=== PATIENT | female | born 1975 ===

== ENCOUNTER 2017-11-16 06:40 | Emergency (ER) | payer OTHER ==
[2017-11-16 07:32] LABS: HCG,QUALITATIVE URINE NEGATIVE (NEGATIVE)
[2017-11-16 07:35] LABS: SQUAMOUS EPITHIAL 19 /hpf (0-5); URINE BACTERIA OCC (<OCC); URINE BILIRUBIN NEGATIVE (NEGATIVE); URINE BLOOD NEGATIVE (NEGATIVE); URINE CLARITY Hazy (Clear); URINE COLOR Yellow (YELLOW); URINE GLUCOSE (UA) NORMAL (Normal); URINE LEUKOCYTE ESTERASE 3+ Leu/uL (Negative); URINE PROTEIN NEGATIVE (NEGATIVE); URINE UROBILINOGEN NORMAL mg/dL (0.2-1.0)
--- NOTE | 2017-11-16 07:44 | C.PDOC ---
History Of Present Illness 42-YEAR-OLD FEMALE, PRESENTS TO THE EMERGENCY DEPARTMENT WITH COMPLAINTS OF LLQ ABDOMINAL PAIN ONGOING X 1 MO. LOCALIZED INTERMIT, PERSIST. NO FEVER NVD, BRBPR. PSH NEG. NO UTI SX EXAM NAD NONTOXIC ABD +LLQ TEND MILD SOFT NO R/G REMAINDER NEG Time Seen by Provider: 11/16/17 07:31 Chief Complaint (Nursing): Abdominal Pain History Per: Patient History/Exam Limitations: no limitations Onset/Duration Of Symptoms: Days Severity: Moderate Location Of Pain/Discomfort: LLQ Past Medical History Reviewed: Historical Data, Nursing Documentation, Vital Signs Vital Signs: Last Vital Signs Temp 98.6 F 11/16/17 06:46 Pulse 71 11/16/17 06:46 Resp 14 11/16/17 06:46 BP 108/73 11/16/17 06:46 Pulse Ox 98 11/16/17 09:05 Family History: States: No Known Family Hx - Social History Hx Alcohol Use: No Hx Substance Use: No - Immunization History Hx Tetanus Toxoid Vaccination: No Hx Influenza Vaccination: No Hx Pneumococcal Vaccination: No Review Of Systems Constitutional: Negative for: Fever, Chills Cardiovascular: Negative for: Chest Pain, Palpitations Respiratory: Negative for: Shortness of Breath Gastrointestinal: Positive for: Abdominal Pain. Negative for: Nausea, Vomiting , Diarrhea, Constipation Skin: Negative for: Rash Neurological: Negative for: Weakness, Numbness, Headache, Dizziness Physical Exam - Physical Exam Appears: Non-toxic, No Acute Distress Skin: Normal Color, Warm, Dry, No Rash Head: Atraumatic, Normacephalic Eye(s): bilateral: Normal Inspection Nose: Normal Oral Mucosa: Moist Lips: Normal Appearing Neck: Normal ROM Chest: Symmetrical Cardiovascular: Rhythm Regular, No Murmur Respiratory: Normal Breath Sounds, No Accessory Muscle Use Gastrointestinal/Abdominal: Soft, Tenderness (LLQ), No Guarding, No Rebound Extremity: Normal ROM, No Deformity, No Swelling Neurological/Psych: Oriented x3, Normal Speech ED Course And Treatment - Laboratory Results Result Diagrams: 11/16/17 07:57 11/16/17 07:57 O2 Sat by Pulse Oximetry: 98 (RA) Pulse Ox Interpretation: Normal Progress - Re-Evaluation Re-evaluation Note: 11/16/17 10:[address] REPORT REVIEWED. LAKEISHA PORRAS PMD/CLINIC - Data Reviewed Data Reviewed: Lab, Diagnostic imaging, Old records Disposition Counseled Patient/Family Regarding: Studies Performed, Diagnosis, Need For Followup - Disposition Referrals: [facility] [Outside] [facility] [Outside] Disposition: HOME/ ROUTINE Disposition Time: 10:34 Condition: GOOD Instructions: Diverticulosis (DC) Forms: The Smart[employer] Physical (Venezuelan) Print Language: MACEDONIAN - Clinical Impression Clinical Impression: Abdominal pain - Scribe Statement The provider has reviewed the documentation as recorded by the Scribe (Minerva Bolaños) All medical record entries made by the Scribe were at my direction and personally dictated by me. I have reviewed the chart and agree that the record accurately reflects my personal performance of the history, physical exam, medical decision making, and the department course for this patient. I have also personally directed, reviewed, and agree with the discharge instructions and disposition.
[2017-11-16 08:05] LABS: BASO % 0.7 % (0.0-2.0); EOS % 0.7 % (0.0-4.0); HEMOGLOBIN 11.3 g/dL (11.0-16.0); LYMPH # 1.2 K/uL (1.0-4.3); MEAN CELL VOLUME 81.4 fL (81.0-99.0); MEAN CORPUSCULAR HEMOGLOBIN 27.4 pg (27.0-31.0); MEAN CORPUSCULAR HGB CONC 33.7 g/dL (33.0-37.0); MEAN PLATELET VOLUME 9.5 fL (7.2-11.7); MONO # 0.4 K/uL (0.0-0.8); MONO % 6.6 % (0.0-10.0); NEUT # 4.2 K/uL (1.8-7.0); NRBC % 0.2 % (0.0-2.0); RBC 4.14 Mil/uL (3.80-5.20); RED CELL DISTRIBUTION WIDTH 15.6 % (11.5-14.5); WHITE BLOOD COUNT 5.8 K/uL (4.8-10.8)
[2017-11-16 08:15] LABS: ALB/GLOB RATIO 1.2 (1.0-2.1); ALBUMIN 4.1 g/dL (3.5-5.0); ALT/SGPT 26 U/L (9-52); AST/SGOT 18 U/L (14-36); BLOOD UREA NITROGEN 8 mg/dL (7-17); CALCIUM 8.2 mg/dl (8.6-10.4); GFR AFRICAN-AMERICAN > 60; GFR NON-AFRICAN AMERICAN > 60; LIPASE 57 U/L (23-300)
[2017-11-16] MEDS ORDERED: Iodixanol 320 MG/ML 100 ML BOTTLE IV ONE (08:22)
--- NOTE | 2017-11-16 10:00 | CT ---
PROCEDURE: CT abdomen and pelvis dated 11/16/2017. HISTORY: Abdominal pain ; LLQ COMPARISON: No prior TECHNIQUE: Contiguous axial images of the abdomen and pelvis performed following intravenous injection of 100 cc Visipaque 320 contrast material. Additional 2 dimensional sagittal and coronal reformats generated. This CT exam was performed using one or more of the following dose reduction techniques: Automated exposure control, adjustment of the mA and/or kV according to patient size, and/or use of iterative reconstruction technique. Contrast dose: 100 cc Visipaque 320 Radiation dose: Total exam DLP = 789.7 mGy-cm. FINDINGS: LOWER THORAX: Minimal bibasilar atelectasis left greater than right Lung bases are otherwise clear. No infiltrate effusion or basilar pneumothorax Heart size within range of normal. No significant pericardial effusion. There is a small hiatal hernia. LIVER: The liver is enlarged measuring over 21 cm in CC dimension. Mild to moderate diffuse fatty hepatic infiltration. No obvious hepatic mass collection or calcification. Oral and splenic veins are opacified. GALLBLADDER AND BILE DUCTS: No evidence of intraluminal gallbladder calculi. PANCREAS: Unremarkable. No mass. No ductal dilatation. SPLEEN: Unremarkable. No splenomegaly. ADRENALS: No adrenal lesions. KIDNEYS AND URETERS: Kidneys demonstrate symmetric nephrograms. No evidence of nephrolithiasis or hydronephrosis the small approximate 9.8 mm rounded low-attenuation focus anterolateral cortex lower pole left kidney probably represent cysts. BLADDER: Urinary bladder is incompletely distended which may in part account for thick-walled appearance. Correlation with urinalysis recommended to exclude cystitis. REPRODUCTIVE: There is a somewhat elliptical shaped though somewhat irregular peripherally enhancing mass within the uterine fundus that measures approximately 4.3cm cc x 3.6cm AP x 3.0cm trans. This lesion probably represents degenerating uterine fibroid . In situ Copper-T IUD. .In addition, there is a small approximately 2.6 x 1.7 cm elliptical shaped involuting left adnexal cyst. . Slight increased vascularity about the uterus; rule out pelvic congestion syndrome. . Questionable trace fluid within the cul de sac. Recommend follow-up pelvic ultrasound recommended to confirm all the above-mentioned findings. APPENDIX: Appendix is unremarkable. BOWEL: Evaluation of the bowel is limited due to the lack of oral contrast material. Stomach is incompletely distended which in part accounts for thick-walled appearance. Possibility of gastritis or other intrinsic wall lesion not excluded. Visualized small bowel exhibit normal contour and caliber. No evidence acute mechanical small bowel obstruction. Stool and air seen throughout the large bowel. There are small colonic diverticula seen along the descending as well as sigmoid colon. No radiographic evidence of acute diverticulitis. Peritoneum Unremarkable. No fluid collection. No free air. Small fat containing umbilical hernia. LYMPH NODES: Unremarkable. No enlarged lymph nodes. VASCULATURE: Unremarkable. No aortic aneurysm. BONES: No fracture or destructive lesion. Minor degenerative spondylosis of the lower thoracic and to a lesser degree lumbar spine OTHER FINDINGS: None. IMPRESSION: Probable degenerating the fundal fibroid. Involuting and or hemorrhagic left adnexal cyst. Questionable trace fluid within the cul de sac. In situ IUD Recommend followup pelvic ultrasound. . Small left renal cyst. Hepatomegaly with moderate fatty hepatic infiltration. Diverticulosis without radiographic evidence acute diverticulitis.
[2017-11-16 10:51] VITALS: BP 116/81; PULSE 65; RESP 18; TEMP 98.3; O2SAT 100
== END 2017-11-16 10:49 | disposition home or self-care (01) ==
LOC: C.ER 06:40
DX: R10.32 Left lower quadrant pain (principal)
CPT/HCPCS: 74177; 80053; 81001; 83690; 84703; 85025; 87086; 99285; Q9967

== ENCOUNTER 2018-01-11 11:36 | Emergency (ER) | payer OTHER, SELFPAY ==
[2018-01-11 13:24] LABS: HCG,QUALITATIVE URINE NEGATIVE (NEGATIVE)
[2018-01-11 13:31] LABS: SQUAMOUS EPITHIAL 10 /hpf (0-5); URINE BILIRUBIN NEGATIVE (NEGATIVE); URINE BLOOD NEGATIVE (NEGATIVE); URINE CLARITY Hazy (Clear); URINE COLOR Amber (YELLOW); URINE GLUCOSE (UA) NORMAL (Normal); URINE LEUKOCYTE ESTERASE 1+ Leu/uL (Negative); URINE PROTEIN NEGATIVE (NEGATIVE); URINE UROBILINOGEN NORMAL mg/dL (0.2-1.0)
--- NOTE | 2018-01-11 13:39 | C.PDOC ---
History Of Present Illness 42 y/o female presents to ED with c/o suprapubic pain radiating to left lower back for 5 days. Patient denies fever, chills, vomiting, vaginal discharge, dysuria, hematuria or any other complaints at this time. Patient has IUD. Time Seen by Provider: 01/11/18 12:37 Chief Complaint (Nursing): Abdominal Pain History Per: Patient History/Exam Limitations: no limitations Onset/Duration Of Symptoms: Days Current Symptoms Are (Timing): Still Present Location Of Pain/Discomfort: Suprapubic Past Medical History Reviewed: Historical Data, Nursing Documentation, Vital Signs Vital Signs: Last Vital Signs Temp 98.1 F 01/11/18 11:45 Pulse 65 01/11/18 11:45 Resp 16 01/11/18 11:45 BP 121/78 01/11/18 11:45 Pulse Ox 100 01/11/18 14:03 - Medical History PMH: No Chronic Diseases Surgical History: No Surg Hx Family History: States: No Known Family Hx - Social History Hx Alcohol Use: No Hx Substance Use: No - Immunization History Hx Tetanus Toxoid Vaccination: No Hx Influenza Vaccination: No Hx Pneumococcal Vaccination: No Review Of Systems Constitutional: Negative for: Fever, Chills Gastrointestinal: Positive for: Abdominal Pain. Negative for: Nausea, Vomiting , Diarrhea Genitourinary: Negative for: Dysuria, Hematuria, Vaginal Discharge Skin: Negative for: Rash Physical Exam - Physical Exam Appears: Non-toxic, No Acute Distress Skin: Warm, Dry, No Rash Head: Atraumatic, Normacephalic Eye(s): bilateral: Normal Inspection Oral Mucosa: Moist Neck: Supple Cardiovascular: Rhythm Regular Respiratory: Normal Breath Sounds, No Rales, No Rhonchi, No Wheezing Gastrointestinal/Abdominal: Soft, No Tenderness, No Guarding, No Rebound Back: No CVA Tenderness Pelvic: No Vaginal Bleeding, Vaginal Discharge (scant clear), No Adnexal Tenderness Extremity: Normal ROM, Capillary Refill (<2 seconds) Neurological/Psych: Oriented x3, Normal Speech, Normal Cognition ED Course And Treatment - Laboratory Results Result Diagrams: 01/11/18 14:17 01/11/18 13:49 O2 Sat by Pulse Oximetry: 100 (RA) Pulse Ox Interpretation: Normal Medical Decision Making Medical Decision Making: On re-exam, the patient reports improvement of symptoms. Lungs are CTA, heart is RRR, abdomen is soft, non-tender and tolerating PO well. Patient is ambulatory in the ED with steady gait. Follow up with the medical doctor/clinic within 1-2 days. Return if worsened. Disposition - Disposition Referrals: [facility] [Outside] Disposition: HOME/ ROUTINE Disposition Time: 16:00 Condition: STABLE Additional Instructions: Follow up with the medical doctor/clinic within 1-2 days. Return if worsened. Prescriptions: Ibuprofen [Motrin] 600 mg PO TID #21 tab Instructions: Ovarian Cyst (DC) Forms: [employer] (Peruvian) Print Language: SWEDISH - POA Present On Arrival: None - Clinical Impression Clinical Impression: Ovarian cyst - PA / GLASS HANDLER / Resident Statement MD/DO has reviewed & agrees with the documentation as recorded. - Scribe Statement The provider has reviewed the documentation as recorded by the Scribedward Lam All medical record entries made by the Scribedward were at my direction and personally dictated by me. I have reviewed the chart and agree that the record accurately reflects my personal performance of the history, physical exam, medical decision making, and the department course for this patient. I have also personally directed, reviewed, and agree with the discharge instructions and disposition.
[2018-01-11 14:17] LABS: CALCIUM 9.2 mg/dl (8.6-10.4); GFR AFRICAN-AMERICAN > 60; GFR NON-AFRICAN AMERICAN > 60; LIPASE 57 U/L (23-300)
[2018-01-11 14:21] LABS: ALB/GLOB RATIO 1.1 (1.0-2.1); ALBUMIN 4.5 g/dL (3.5-5.0); ALT/SGPT 26 U/L (9-52); AST/SGOT 38 U/L (14-36); BLOOD UREA NITROGEN 10 mg/dL (7-17)
[2018-01-11 14:22] LABS: BASO # 0.1 K/uL (0.0-0.2); BASO % 0.9 % (0.0-2.0); EOS # 0.1 K/uL (0.0-0.7); EOS % 1.3 % (0.0-4.0); LYMPH # 1.8 K/uL (1.0-4.3); LYMPH % 30.4 % (20.0-40.0); MEAN CELL VOLUME 81.6 fL (81.0-99.0); MEAN CORPUSCULAR HEMOGLOBIN 27.9 pg (27.0-31.0); MEAN CORPUSCULAR HGB CONC 34.2 g/dL (33.0-37.0); MEAN PLATELET VOLUME 9.5 fL (7.2-11.7); MONO # 0.4 K/uL (0.0-0.8); MONO % 6.3 % (0.0-10.0); NEUT # 3.6 K/uL (1.8-7.0); NEUT % 61.1 % (50.0-75.0); NRBC % 0.1 % (0.0-2.0); RBC 4.3 Mil/uL (3.80-5.20); RED CELL DISTRIBUTION WIDTH 14.7 % (11.5-14.5); WHITE BLOOD COUNT 5.9 K/uL (4.8-10.8)
--- NOTE | 2018-01-11 15:42 | US ---
Date of service: 01/11/2018 HISTORY: pelvic pain COMPARISON: Comparison is made with the previous study dated 12/14/2017 TECHNIQUE: Transabdominal and endovaginal ultrasound examination of the pelvis was obtained. FINDINGS: UTERUS: Measures 10.8 x 6.1 x 5.8 cm. Normal in size and appearance. Intramural fundal leiomyoma is again noted measures 3.9 x 3.4 x 3.9 centimeter. ENDOMETRIUM: Measures 1.2 mm in diameter. Intrauterine device is again noted in place. CERVIX: No cervical abnormality identified. RIGHT OVARY: Measures 3.4 x 2.9 x 3.6 cm. No solid mass. Normal flow. There is a cyst seen at the right ovary measures 2.1 x 1 centimeter. LEFT OVARY: Measures 3.3 x 2.2 x 2.9 cm. No solid mass. Normal flow. FREE FLUID: No significant free fluid noted. OTHER FINDINGS: None. IMPRESSION: Again noted is intramural leiomyoma. IUD is again noted in place. 2.1 centimeters cyst at the right ovary.
[2018-01-11 16:12] VITALS: BP 105/66; PULSE 63; RESP 18; TEMP 98.6; O2SAT 99
== END 2018-01-11 16:13 | disposition home or self-care (01) ==
LOC: C.ER 11:36
DX: N83.201 Unspecified ovarian cyst, right side (principal)

== ENCOUNTER 2018-04-16 14:25 | Emergency (ER) | payer SELFPAY ==
--- NOTE | 2018-04-16 14:45 | C.PDOC ---
History Of Present Illness 42 yr old F w/ hx of fibroids p/w abdominal pain. Abdominal pain began last night, throbbing, from LLQ to LUQ, without chest pain or SOB. No constipation or diarrhea or dark or bloody stool. No abnl vaginal d/c- pt notes she is on her periods currently. Pain does not feel like previous fibroid type pain. No flank pain. No headache or fall. No trauma. No urinary complaints. No rash. Pending imaging and labs. Time Seen by Provider: 04/16/18 14:45 Past Medical History Family History: States: Unknown Family Hx - Social History Hx Alcohol Use: No Hx Substance Use: No - Immunization History Hx Tetanus Toxoid Vaccination: No Hx Influenza Vaccination: No Hx Pneumococcal Vaccination: No Review Of Systems Constitutional: Negative for: Fever, Chills, Weakness, Malaise Eyes: Negative for: Pain, Vision Change, Eyelid Inflammation ENT: Negative for: Ear Pain, Ear Discharge, Nose Congestion, Mouth Pain, Throat Pain Cardiovascular: Negative for: Chest Pain, Palpitations, Edema Respiratory: Negative for: Cough, SOB with Excertion, Sputum, Wheezing Gastrointestinal: Positive for: Abdominal Pain. Negative for: Nausea, Vomiting, Diarrhea, Constipation, Melena, Hematochezia, Hematemesis, Rectal Pain Genitourinary: Negative for: Dysuria, Frequency, Hematuria, Vaginal Discharge Musculoskeletal: Negative for: Neck Pain, Shoulder Pain, Back Pain, Hand Pain Skin: Negative for: Rash, Lesions Neurological: Negative for: Weakness, Numbness, Confusion, Seizures Psych: Negative for: Anxiety Physical Exam - Physical Exam Appears: Well, Non-toxic, No Acute Distress Skin: Normal Color, Warm Head: Atraumatic, Normacephalic Eye(s): bilateral: Normal Inspection, PERRL, EOMI Nose: Normal Oral Mucosa: Moist Teeth: Normal Dentition Gingiva: Normal Appearing Throat: Normal, No Erythema, No Exudate Neck: Normal, Normal ROM, Supple, Other (no meningeal signs) Chest: Symmetrical Cardiovascular: Rhythm Regular Respiratory: Normal Breath Sounds Gastrointestinal/Abdominal: Soft, Tenderness (LLQ. LUQ), No Mass Back: Normal Inspection, No CVA Tenderness Extremity: Normal ROM, Capillary Refill (normal), No Deformity Neurological/Psych: Oriented x3, Normal Speech, Normal Cognition, No Cerebellar Signs, Normal Motor Gait: Steady ED Course And Treatment - Laboratory Results Result Diagrams: 04/16/18 15:53 04/16/18 15:53 Medical Decision Making Medical Decision Makin yr old female w/ hx of fibroids currently on her period p/w LLQ and LUQ abdominal pain w/ out rashes, constipation or N/V. No fall or trauma. No abnl vaginal. No urinary complaints. No CVA T or flank pain. Pending imaging and labs. 1638 Per RN first set of labs incorrect: 1st set of labs from unk patient. 2nd set of labs is the correct labs. labs otherwise unremarkable 1755 CT read: Diverticulitis Pt states he has IUD: No pelvic pain. No intermittent abd pain. No abd vaginal d/c. Pt in NAD with VSS ,clear for d/c home w/ followup and return indications. Pt agreeable Disposition - Disposition Referrals: [facility] [Outside] [facility] [Outside] Stuart Diallo MD [Staff Provider] - Disposition: HOME/ ROUTINE Disposition Time: 17:57 Condition: GOOD Additional Instructions: BRAXTON MEYER, thank you for letting us take care of you today. Your provider was Maciej Chacon and you were treated for ABD PAIN. The emergency medical care you received today was directed at your acute symptoms. If you were prescribed any medication, please fill it and take as directed. It may take several days for your symptoms to resolve. Return to the Emergency Department if your symptoms worsen, do not improve, or if you have any other problems. Please contact your doctor or call one of the physicians/clinics you have been referred to that are listed on the Patient Visit Information form that is included in your discharge packet. Bring any paperwork you were given at discharge with you along with any medications you are taking to your follow up visit. Our treatment cannot replace ongoing medical care by a primary care provider outside of the emergency department. Thank you for allowing the [facility] team to be part of your care today. If you had an X-Ray or CT scan: A Radiologist will review the ED reading if any change in treatment is needed we will contact you. If you had a blood, urine, or wound culture: It will take several days for the results, if any change in treatment is needed we will contact you. If you had an STI test: It will take 48 hours for the results. Please call after 1 week if you have not heard back. Prescriptions: Ciprofloxacin [Cipro] 500 mg PO BID 14 Days #28 tab Metronidazole [Flagyl] 500 mg PO TID 14 Days #42 tablet Instructions: Diverticulitis (DC), Diverticulitis Forms: [employer] (Icelandic) Print Language: SYRIAC - Clinical Impression Clinical Impression: Diverticulitis
[2018-04-16 14:47] VITALS: RESP 18
[2018-04-16 15:13] LABS: BASO # 0.1 K/uL (0.0-0.2); BASO % 1.1 % (0.0-2.0); EOS # 0.1 K/uL (0.0-0.7); EOS % 1.3 % (0.0-4.0); HEMOGLOBIN 12.5 g/dL (11.0-16.0); LYMPH # 1.4 K/uL (1.0-4.3); LYMPH % 17.5 % (20.0-40.0); MEAN CELL VOLUME 96.2 fL (81.0-99.0); MEAN CORPUSCULAR HEMOGLOBIN 32.4 pg (27.0-31.0); MEAN CORPUSCULAR HGB CONC 33.6 g/dL (33.0-37.0); MEAN PLATELET VOLUME 9.9 fL (7.2-11.7); MONO # 0.5 K/uL (0.0-0.8); MONO % 6.4 % (0.0-10.0); NEUT # 6.1 K/uL (1.8-7.0); NEUT % 73.7 % (50.0-75.0); RBC 3.85 Mil/uL (3.80-5.20); RED CELL DISTRIBUTION WIDTH 13.9 % (11.5-14.5); WHITE BLOOD COUNT 8.3 K/uL (4.8-10.8)
[2018-04-16] MEDS ORDERED: Sodium Chloride 0.9% 1,000 ML IV SCH (15:15)
[2018-04-16] MEDS ORDERED: Iodixanol 320 MG/ML 100 ML BOTTLE IV ONE (15:23)
[2018-04-16 15:30] LABS: ALB/GLOB RATIO 1.3 (1.0-2.1); ALBUMIN 3.8 g/dL (3.5-5.0)
[2018-04-16 15:50] LABS: SQUAMOUS EPITHIAL 4 /hpf (0-5); URINE BACTERIA RARE (<OCC); URINE BILIRUBIN NEGATIVE (NEGATIVE); URINE BLOOD 3+ (NEGATIVE); URINE CLARITY Hazy (Clear); URINE COLOR Yellow (YELLOW); URINE GLUCOSE (UA) NORMAL (Normal); URINE LEUKOCYTE ESTERASE NEG Leu/uL (Negative); URINE PROTEIN 1+ mg/dL (NEGATIVE); URINE UROBILINOGEN NORMAL mg/dL (0.2-1.0)
[2018-04-16 15:56] LABS: MEAN CELL VOLUME 82.7 fL (81.0-99.0); MEAN CORPUSCULAR HEMOGLOBIN 27.5 pg (27.0-31.0); MEAN CORPUSCULAR HGB CONC 33.3 g/dL (33.0-37.0); RBC 3.7 Mil/uL (3.80-5.20); RED CELL DISTRIBUTION WIDTH 14.2 % (11.5-14.5); WHITE BLOOD COUNT 6.2 K/uL (4.8-10.8)
[2018-04-16 16:03] LABS: HEMOGLOBIN 10.2 g/dL (11.0-16.0)
[2018-04-16 16:25] LABS: ALB/GLOB RATIO 1.1 (1.0-2.1); ALBUMIN 3.6 g/dL (3.5-5.0); ALT/SGPT 29 U/L (9-52); AST/SGOT 19 U/L (14-36); BLOOD UREA NITROGEN 8 mg/dL (7-17); CALCIUM 7.9 mg/dl (8.6-10.4); GFR NON-AFRICAN AMERICAN > 60
--- NOTE | 2018-04-16 17:38 | CT ---
Date of service: 04/16/2018 PROCEDURE: CT Abdomen and Pelvis with intravenous contrast HISTORY: Abdominal pain COMPARISON: 11/16/2017 TECHNIQUE: Multiple contiguous axial images were performed through the abdomen and pelvis with the use of intravenous contrast. Subsequently, sagittal and coronal reformatted images were obtained. Radiation dose: Total exam DLP = 711.51 mGy-cm. This CT exam was performed using one or more of the following dose reduction techniques: Automated exposure control, adjustment of the mA and/or kV according to patient size, and/or use of iterative reconstruction technique. FINDINGS: LOWER THORAX: Atelectasis at the lung bases. LIVER: Fatty infiltration of the liver. GALLBLADDER AND BILE DUCTS: Unremarkable. PANCREAS: Unremarkable. No gross lesion or ductal dilatation. SPLEEN: Unremarkable. ADRENALS: Unremarkable. No mass. KIDNEYS AND URETERS: Unremarkable. No hydronephrosis. No solid mass. 1.2 centimeter low-attenuation lesion seen within the lower pole of the left kidney demonstrating a Hounsfield unit attenuation of 14, indeterminate. VASCULATURE: Unremarkable. No aortic aneurysm. No aortic atherosclerotic calcification or mural plaque present. BOWEL: Colonic diverticulosis. At the level of the distal descending colon/proximal sigmoid colon, there is focal colonic thickening with adjacent fluid and fat stranding suggestive for acute diverticulitis versus focal colitis. Post treatment interval follow-up is recommended to ensure resolution and exclude additional underlying lesion. Clinical correlation. APPENDIX: Unremarkable. Normal appendix. PERITONEUM: As above. LYMPH NODES: Unremarkable. No enlarged lymph nodes. BLADDER: Unremarkable. REPRODUCTIVE: Heterogeneous and prominent uterus with intrauterine device in place as well as multiple fibroid lesions. Small amount of free fluid within pelvic cul-de-sac. Prominence of the bilateral ovaries. Air noted at the level of the vaginal cuff. BONES: No acute fracture. OTHER FINDINGS: None. IMPRESSION: Colonic diverticulosis. At the level of the distal descending colon/proximal sigmoid colon, there is focal colonic thickening with adjacent fluid and fat stranding suggestive for acute diverticulitis versus focal colitis. Post treatment interval follow-up is recommended to ensure resolution and exclude additional underlying lesion. Clinical correlation. Heterogeneous and prominent uterus with intrauterine device in place as well as multiple fibroid lesions. Small amount of free fluid within pelvic cul-de-sac. Prominence of the bilateral ovaries. Air noted at the level of the vaginal cuff. Additional findings as above.
[2018-04-16 18:22] VITALS: BP 110/64; PULSE 70; TEMP 98.1; O2SAT 99
--- NOTE | 2018-04-18 23:04 | CARD ---
APPROVED REPORT Date of service: 04/16/2018 EKG Measurement Heart [id number] MD [id number] <Conclusion> Sinus bradycardia Otherwise normal ECG
== END 2018-04-16 18:22 | disposition home or self-care (01) ==
LOC: C.ER 14:25
DX: K57.32 Diverticulitis of large intestine without perforation or abscess without bleeding (principal)
CPT/HCPCS: 74177; 80053; 81001; 83690; 85025; 85027; 93005; 96360; 96361; 99285; J7030; Q9967